=== PATIENT | female | born 1950 | race African-American/Black ===

== ENCOUNTER 2017-05-13 09:59 | Emergency (ER) | payer MEDICAID, OTHER ==
[~2017-05-13] VITALS: Ht 154.9 cm; Wt 54.0 kg
[~2017-05-13 09:59] MED LIST: CYCL-36 PO; IBUP-232 PO; PRIN5TAB PO
[2017-05-13 10:01] VITALS: BP 136/82; PULSE 96; RESP 14; TEMP 98.4; O2SAT 99
[2017-05-13 11:31] LABS: PROTHROMBIN TIME - PATIENT 10.2 SEC (9.8-11.6)
[2017-05-13 11:35] LABS: BASOPHIL % 0.6 % (0.0-2.0); EOSINOPHIL # 0.1 TH/MM3 (0-0.4); EOSINOPHIL % 1.3 % (0.0-4.0); HEMATOCRIT 35.5 % (35.0-46.0); HEMOGLOBIN 11.6 GM/DL (11.6-15.3); LYMPHOCYTE # 1.2 TH/MM3 (1.0-4.8); MEAN CELL VOLUME 97.7 FL (80.0-100.0); MEAN CORPUSCULAR HEMOGLOBIN 31.9 PG (27.0-34.0); MEAN CORPUSCULAR HGB CONC 32.6 % (32.0-36.0); MEAN PLATELET VOLUME 6.8 FL (7.0-11.0); MONO % 3.6 % (0.0-8.0); MONOCYTE # 0.2 TH/MM3 (0-0.9); NEUT % 72.5 % (16.0-70.0); PLATELET COUNT 315 TH/MM3 (150-450); RED BLOOD COUNT 3.64 MIL/MM3 (4.00-5.30); RED CELL DISTRIBUTION WIDTH 14.6 % (11.6-17.2); WHITE BLOOD COUNT 5.6 TH/MM3 (4.0-11.0)
[2017-05-13 11:45] LABS: ALBUMIN 3.5 GM/DL (3.4-5.0); ALT (GPT) 16 U/L (10-53); AST (GOT) 16 U/L (15-37); BICARBONATE 22.5 MEQ/L (21.0-32.0); BLOOD UREA NITROGEN 28 MG/DL (7-18); CALCIUM 9.1 MG/DL (8.5-10.1); CHLORIDE 112 MEQ/L (98-107); CREATININE 1.25 MG/DL (0.50-1.00); GLOMERULAR FILTRATION RATE 52 ML/MIN (>89); GLUCOSE,RANDOM 100 MG/DL (74-106); SODIUM (NA) 141 MEQ/L (136-145)
[2017-05-13 11:47] LABS: ALKALINE PHOSPHATASE 104 U/L (45-117); TOTAL BILIRUBIN ADULT 0.3 MG/DL (0.2-1.0); TOTAL PROTEIN 8.6 GM/DL (6.4-8.2)
[2017-05-13] MEDS ORDERED: METO-309 PO (12:54)
[2017-05-13] MEDS ORDERED: LOVA40TA PO (12:54)
[2017-05-13] MEDS ORDERED: PLAV75TA29 PO (12:54)
[2017-05-13] MEDS ORDERED: LISI40TA PO (12:54)
[2017-05-13] MEDS ORDERED: AMLO10 PO (12:54)
--- NOTE | 2017-05-13 13:18 | PD ---
HPI Chief Complaint: Nosebleed Time Seen by Provider: 13:02 Travel History International Travel<30 days: No Contact w/Intl Traveler<30days: No Traveled to known affect area: No History of Present Illness HPI 66-year-old female presents to the emergency department with his left nares nosebleed since yesterday. She was able to get it to stop yesterday and it restarted this morning when she stood up out of bed. She is on Plavix. She did not take her Plavix yesterday or today. Denies recent illness. Denies fever, vomiting. Denies lightheadedness, dizziness, chest pain, shortness of breath. Packed her left nares with a cotton ball this morning at 9 AM and has not had to change the packing. Symptoms are mild in severity. No known aggravating factors. Relieved with nasal packing. Has no other medical complaints. No primary care provider. History of hypertension and subclavian stent. No known allergies. Has no medical complaints. No other modifying factors or associated signs and symptoms. PFSH Past Medical History Blood Disorders: No Cancer: No Cardiac Catheterization: Yes Cardiovascular Problems: Yes (CARDIOVASCULAR DISEASE) Diabetes: No Diminished Hearing: No Endocrine: No Genitourinary: No Hypertension: Yes Musculoskeletal: No Neurologic: No Psychiatric: No Reproductive: No Respiratory: No Immunizations Current: Yes Tetanus Vaccination: Unknown ?: Not Menopausal: Yes : 2 Para: 2 Past Surgical History Cardiac Surgery: Yes (RIGHT SUBCLAVIAN STENT x 1 ) Other Surgery: Yes (TOE SURGERY IN THE ) Social History Alcohol Use: Yes (OCC) Tobacco Use: No (quit) Substance Use: No Allergies-Medications (Allergen,Severity, Reaction): Coded Allergies: No Known Allergies (Verified Adverse Reaction, Unknown, 05/13/17) Reported Meds & Prescriptions Reported Meds & Active Scripts Active Reported Lovastatin 40 Mg Tab 40 Mg PO DAILY Lopressor (Metoprolol Tartrate) 50 Mg Tab 50 Mg PO BID Norvasc (Amlodipine Besylate) 10 Mg Tab 10 Mg PO DAILY Plavix (Clopidogrel Bisulfate) 75 Mg Tab 75 Mg PO DAILY Lisinopril 40 Mg Tab 40 Mg PO DAILY Review of Systems Except as stated in HPI: all other systems reviewed are Neg Physical Exam Narrative GENERAL: Well-nourished, well-developed black female patient, in no acute distress; afebrile, nontoxic-appearing SKIN: Warm and dry. No rash. HEAD: Atraumatic. Normocephalic. EYES: Pupils equal and round. No scleral icterus. No injection or drainage. ENT: Mucosa pink and moist. No erythema or exudates. No uvular edema. No uvular , palatal, or tonsillar deviation. Airway patent. Nasal turbinates appear normal without nasal blood, purulent drainage or septal hematoma. EARS: Bilateral pinnae and external canals appear within normal limits. Bilateral tympanic membranes without erythema, dullness or perforation. NECK: Trachea midline. No lymphadenopathy. CARDIOVASCULAR: Regular rate. RESPIRATORY: No accessory muscle use. GASTROINTESTINAL: Flat. MUSCULOSKELETAL: No obvious deformities. No clubbing. No cyanosis. No edema. NEUROLOGICAL: Awake and alert. Oriented 3. No obvious cranial nerve deficits. Motor grossly within normal limits. Normal speech. Moves all extremities. 5/5 strength to all extremities. PSYCHIATRIC: Appropriate mood and affect; insight and judgment normal. Data Data Last Documented VS Vital Signs Date Time Temp Pulse Resp B/P (MAP) Pulse Ox O2 Delivery O2 Flow Rate FiO2 05/13/17 10:01 98.4 96 14 136/82 (100) 99 Orders Orders Complete Blood Count With Diff (05/13/17 10:55) Comprehensive Metabolic Panel (05/13/17 10:55) Prothrombin Time / Inr (Pt) (05/13/17 10:55) Act Partial Throm Time (Ptt) (05/13/17 10:55) Labs Laboratory Tests Test 05/13/17 11:07 White Blood Count 5.6 TH/MM3 Red Blood Count 3.64 MIL/MM3 Hemoglobin 11.6 GM/DL Hematocrit 35.5 % Mean Corpuscular Volume 97.7 FL Mean Corpuscular Hemoglobin 31.9 PG Mean Corpuscular Hemoglobin Concent 32.6 % Red Cell Distribution Width 14.6 % Platelet Count 315 TH/MM3 Mean Platelet Volume 6.8 FL Neutrophils (%) (Auto) 72.5 % Lymphocytes (%) (Auto) 22.0 % Monocytes (%) (Auto) 3.6 % Eosinophils (%) (Auto) 1.3 % Basophils (%) (Auto) 0.6 % Neutrophils # (Auto) 4.0 TH/MM3 Lymphocytes # (Auto) 1.2 TH/MM3 Monocytes # (Auto) 0.2 TH/MM3 Eosinophils # (Auto) 0.1 TH/MM3 Basophils # (Auto) 0.0 TH/MM3 CBC Comment DIFF FINAL Differential Comment Prothrombin Time 10.2 SEC Prothromb Time International Ratio 1.0 RATIO Activated Partial Thromboplast Time 25.7 SEC Blood Urea Nitrogen 28 MG/DL Creatinine 1.25 MG/DL Random Glucose 100 MG/DL Total Protein 8.6 GM/DL Albumin 3.5 GM/DL Calcium Level 9.1 MG/DL Alkaline Phosphatase 104 U/L Aspartate Amino Transf (AST/SGOT) 16 U/L Alanine Aminotransferase (ALT/SGPT) 16 U/L Total Bilirubin 0.3 MG/DL Sodium Level 141 MEQ/L Potassium Level 4.4 MEQ/L Chloride Level 112 MEQ/L Carbon Dioxide Level 22.5 MEQ/L Anion Gap 7 MEQ/L Estimat Glomerular Filtration Rate 52 ML/MIN MDM Medical Decision Making Medical Screen Exam Complete: Yes Emergency Medical Condition: Yes Medical Record Reviewed: Yes Differential Diagnosis Epistaxis, hematoma, medical clearance Narrative Course 66-year-old female, who is on Plavix, with left nares epistaxis that started and stopped yesterday and restarted this morning. She has had a pack since 9 AM this morning and has not had to change the packing. Physical exam is unremarkable and I do not see any active bleeding after removal of the nasal packing. I will monitor the patient for 30 minutes and if there is no continued nosebleed the patient will be discharged home. 1400: No continued nose bleeding. Instructed patient to restart Plavix tomorrow. Instructed patient to follow up with primary care provider. Patient verbalizes understanding and agreement with treatment plan. Patient is medically cleared and stable for discharge. Discussed reasons to return to the emergency department. Patient agrees with treatment plan. The patients vital signs are stable and the patient is stable for outpatient follow-up and treatment. Patient discharged home, stable and in no acute distress. Diagnosis Primary Impression: Epistaxis Referrals: [facility] Primary Care Physician Patient Instructions: Epistaxis (DC), General Instructions Additional Instructions: Restart Plavix on 05/14/2017 Do not blow your nose Do not rub your nose Do not put anything into your nose Follow-up with primary care provider Return to the emergency department with worsening of symptoms Med/Other Pt SpecificInfo: No Change to Meds, No Meds Exist/No RX given Disposition: DISCHARGE HOME Condition: Stable Alysa Mcrae May 13, 2017 13:18
[2017-05-13 14:21] VITALS: BP 105/58; PULSE 78; RESP 18; O2SAT 99
== END 2017-05-13 14:35 | disposition home or self-care (01) ==
LOC: NEPD 09:59
DX: R04.0 Epistaxis (principal); I10 Essential (primary) hypertension; Z79.02 Long term (current) use of antithrombotics/antiplatelets; Z79.899 Other long term (current) drug therapy
CPT/HCPCS: 80053; 85025; 85610; 85730; 99283